=== PATIENT | male | born 1980 | race Caucasian/White ===

== ENCOUNTER 2017-02-28 15:55 | Emergency (ER) | payer OTHER ==
[~2017-02-28] VITALS: Ht 180.3 cm; Wt 113.6 kg
[~2017-02-28 15:55] MED LIST: AMLODIPINE2.5 MG PO; AMOXICILLIN/CL875 MG OR; AMOXICILLIN/CL875 MG PO; ATENOLOL25 MG PO; AUGMENTIN875TAB PO; BACITRACIN500 MG/GM OD; CIPRODEX1 ML AU; CIPROFLOXACN500 MG PO; ERYTHROMYCIN BAS1 GM OD; FLEXERIL OR; FLEXERIL PO; FLEXERIL10 MG PO; HYDROCHLOROT12.5 MG PO; HYDROCHLOROTH12.5 MG PO; LISINOP/HCTZ1 TA2 PO; LISINOPRIL10 MG PO; LISINOPRIL30 MG OR; LISINOPRIL40 MG PO; METRONIDAZOL500 MG PO; MUCINEX600 MG PO; MUPIROCIN2 % EX; NAPROSYN375 MG PO; NAPROSYN500 MG OR; NAPROSYN500 MG PO; NO HOME MEDS; ONDANSETRON4 MG PO; ZITHROMAX250 MG PO; ZPAK PO
[2017-02-28 16:53] LABS: HEMATOCRIT 42.3 % (39.0-50.0); HEMOGLOBIN 14.6 g/dl (14.0-18.0); IMMATURE GRANULOCYTES 0.5 % (0.0-1.0); MEAN CORPUSCULAR HGB 31.1 pG CALC (26.0-32.0); MEAN CORPUSCULAR HGB CONC 34.5 g/L CALC (32.0-36.0); NEUT# 5.27 thou/uL (1.82-7.42); RED BLOOD COUNT 4.7 mill/uL (4.70-6.10); RED CELL DISTRI WIDTH 13.2 % (11.5-15.5)
[2017-02-28 17:06] LABS: ALBUMIN 4.7 g/dL (3.2-5.0); ALKALINE PHOSPHATASE 65 u/l (38-126); AMYLASE < 30 u/l (30-110); ANION GAP 15 (6-22 (CALC)); BILIRUBIN, TOTAL 0.4 mg/dL (0.0-1.4); BUN 12 mg/dL (9-20); BUN/CREATININE RATIO 16 (12-20 (CALC)); CALCIUM 10.3 mg/dL (8.4-10.2); CARBON DIOXIDE 31 mmol/l (22-30); CHLORIDE 102 mmol/l (95-108); CREATININE 0.8 mg/dL (0.7-1.3); GFR > 60 ML/MIN (>=60 (CALC)); GFR FOR AFR.AMER. > 60 ML/MIN (>=60 (CALC)); GLUCOSE 125 mg/dL (75-110); LIPASE 56 u/l (23-300); SGOT/AST 30 u/l (17-59); SGPT/ALT 53 u/l (21-72); SODIUM 144 mmol/l (137-146); TOTAL PROTEIN 7.7 g/dL (6.3-8.2)
[2017-02-28 18:49] LABS: URINE BILIRUBIN - DIPSTICK NEGATIVE (NEGATIVE); URINE BLOOD DIPSTICK TRACE-INTACT (NEGATIVE); URINE CLARITY CLEAR; URINE COLOR YELLOW; URINE GLUCOSE - DIPSTICK NEGATIVE (NEGATIVE); URINE KETONE NEGATIVE (NEGATIVE); URINE LEUK ESTERASE NEGATIVE (NEGATIVE); URINE NITRITE - DIPSTICK NEGATIVE (Negative); URINE PH 6.5 (4.5-8.0); URINE PROTEIN - DIPSTICK NEGATIVE (NEG-TRACE); URINE SPECIFIC GRAVITY 1.025; URINE UROBILINOGEN - DIPSTICK 0.2 E.U./dL (0.2)
[2017-02-28] MEDS ORDERED: CIPROFLOXACN500 MG PO (21:08)
[2017-02-28] MEDS ORDERED: METRONIDAZOL500 MG PO (21:08)
[2017-02-28] MEDS ORDERED: ULTRAM50 M1 PO (21:08)
[2017-02-28 21:38] VITALS: BP 154/89
== END 2017-02-28 21:38 | disposition home or self-care (01) | DRG 392 ==
LOC: ED 15:55
PROVIDERS: Emergency Medicine
DX: K57.32 Diverticulitis of large intestine without perforation or abscess without bleeding (principal); I10 Essential (primary) hypertension; R10.32 Left lower quadrant pain; R10.31 Right lower quadrant pain; R11.10 Vomiting, unspecified

== ENCOUNTER 2017-04-18 11:36 | Emergency (ER) | payer OTHER ==
[~2017-04-18] VITALS: Ht 180.3 cm; Wt 110.0 kg
[~2017-04-18 11:36] MED LIST changes: +ULTRAM50 M1 PO
[2017-04-18] MEDS ORDERED: TESSALON PER100 MG PO (11:58)
[2017-04-18] MEDS ORDERED: ZITHROMAX250 MG PO (11:58)
[2017-04-18] MEDS ORDERED: AFRIN 12 HOUR0.05 % (11:58)
[2017-04-18 12:14] VITALS: BP 148/88
== END 2017-04-18 12:20 | disposition home or self-care (01) | DRG 153 ==
LOC: ED 11:36
DX: J06.9 Acute upper respiratory infection, unspecified (principal); F17.200 Nicotine dependence, unspecified, uncomplicated; J40 Bronchitis, not specified as acute or chronic; R05 Cough

== ENCOUNTER 2018-01-31 14:47 | Emergency (ER) | payer OTHER ==
[~2018-01-31] VITALS: Ht 180.3 cm; Wt 113.6 kg
[~2018-01-31 14:47] MED LIST changes: +AFRIN 12 HOUR0.05 %; +TESSALON PER100 MG PO
[2018-01-31] MEDS ORDERED: AMOXICILLIN500 M2 PO (15:17)
[2018-01-31 15:20] VITALS: BP 151/96
== END 2018-01-31 15:20 | disposition home or self-care (01) | DRG 153 ==
LOC: ED 14:47
DX: J02.9 Acute pharyngitis, unspecified (principal); F17.210 Nicotine dependence, cigarettes, uncomplicated; I10 Essential (primary) hypertension; R05 Cough

== ENCOUNTER 2018-07-30 09:47 | Emergency (ER) | payer SELFPAY ==
[~2018-07-30] VITALS: Ht 180.3 cm; Wt 114.0 kg
[~2018-07-30 09:47] MED LIST changes: +AMOXICILLIN500 M2 PO
[2018-07-30] MEDS ORDERED: LISINOPRIL/HYDR1 TA1 PO (10:17)
[2018-07-30] MEDS ORDERED: TORADOL PO (10:33)
[2018-07-30] MEDS ORDERED: FLEXERIL PO (10:33)
[2018-07-30] MEDS ORDERED: MEDDOSEPAK PO (10:33)
[2018-07-30 10:55] VITALS: BP 161/99
== END 2018-07-30 10:55 | disposition home or self-care (01) | DRG 552 ==
LOC: ED 09:47
DX: M51.36 Other intervertebral disc degeneration, lumbar region (principal); M54.5 Low back pain

== ENCOUNTER 2018-11-25 10:58 | Emergency (ER) | payer OTHER ==
[~2018-11-25] VITALS: Ht 180.3 cm; Wt 113.6 kg
[~2018-11-25 10:58] MED LIST changes: +LISINOPRIL/HYDR1 TA1 PO; +MEDDOSEPAK PO; +TORADOL PO
[2018-11-25] MEDS ORDERED: AMOXICILLIN875 MG PO (11:53)
[2018-11-25 12:05] VITALS: BP 159/74
== END 2018-11-25 12:05 | disposition home or self-care (01) ==
LOC: ED 10:58
DX: J02.9 Acute pharyngitis, unspecified (principal); R50.9 Fever, unspecified; R05 Cough
CPT/HCPCS: J0561

== ENCOUNTER 2019-03-07 11:15 | Emergency (ER) | payer OTHER ==
[~2019-03-07] VITALS: Ht 180.3 cm; Wt 120.0 kg
[~2019-03-07 11:15] MED LIST changes: +AMOXICILLIN875 MG PO
[2019-03-07 12:29] VITALS: BP 231/135
[2019-03-07] MEDS ORDERED: LISINOPRIL20 MG PO (12:37)
== END 2019-03-07 12:45 | disposition home or self-care (01) | DRG 605 ==
LOC: ED 11:15
DX: S00.83XA Contusion of other part of head, initial encounter (principal); I10 Essential (primary) hypertension; T46.5X6A Underdosing of other antihypertensive drugs, initial encounter; F17.200 Nicotine dependence, unspecified, uncomplicated; Y92.71 Barn as the place of occurrence of the external cause; W20.8XXA Other cause of strike by thrown, projected or falling object, initial encounter; Z91.128 Patient's intentional underdosing of medication regimen for other reason

== ENCOUNTER 2019-11-06 | Emergency (ER) | payer MEDICAID ==
[~2019-11-06] MED LIST changes: +LISINOPRIL20 MG PO
[2019-11-06 11:16] LABS: HEMATOCRIT 43.4 % (39.0-50.0); HEMOGLOBIN 14.9 g/dl (14.0-18.0); IMMATURE GRANULOCYTES 0.5 % (0.0-5.0); MEAN CELL VOLUME 85.9 fL CALC (80.0-100.0); MEAN CORPUSCULAR HGB 29.5 pG CALC (26.0-32.0); MEAN CORPUSCULAR HGB CONC 34.3 g/L CALC (32.0-36.0); NEUT# 5.67 thou/uL (1.82-7.42); RED BLOOD COUNT 5.05 mill/uL (4.70-6.10); RED CELL DISTRI WIDTH 13.2 % (11.5-15.5)
[2019-11-06 11:36] LABS: ALBUMIN 4.5 g/dL (3.2-5.0); ALKALINE PHOSPHATASE 78 u/l (38-126); BUN 14 mg/dL (9-20); BUN/CREATININE RATIO 21 (12-20 (CALC)); CARBON DIOXIDE 26 mmol/l (22-30); CHLORIDE 98 mmol/l (95-108); CREATININE 0.7 mg/dL (0.7-1.3); GFR > 60 ML/MIN (>=60 (CALC)); GFR FOR AFR.AMER. > 60 ML/MIN (>=60 (CALC)); POTASSIUM 4.2 mmol/l (3.5-5.1); SGOT/AST 34 u/l (17-59); TOTAL PROTEIN 7.4 g/dL (6.3-8.2)
[2019-11-06 11:48] LABS: MYOGLOBIN 37 ng/mL (0 - 121)
[2019-11-06 12:04] LABS: ANION GAP 14 (6-22 (CALC)); BILIRUBIN, TOTAL 0.7 mg/dL (0.0-1.4); SODIUM 134 mmol/l (137-146)
== END 2019-11-06 14:25 | disposition left against medical advice (07) ==
PROVIDERS: Emergency Medicine
DX: R07.9 Chest pain, unspecified (principal); I10 Essential (primary) hypertension; T46.5X6A Underdosing of other antihypertensive drugs, initial encounter; Z91.128 Patient's intentional underdosing of medication regimen for other reason; F17.200 Nicotine dependence, unspecified, uncomplicated; Z91.19 Patient's noncompliance with other medical treatment and regimen